=== PATIENT | male | born 1995 | race Caucasian/White ===

== ENCOUNTER 2016-12-23 21:51 | Emergency (ER) | payer OTHER ==
[2016-12-23 21:57] VITALS: BP 128/79
[2016-12-23] MEDS ORDERED: Azithromycin TAB* 250 MG PO ONE (22:02)
--- NOTE | 2016-12-23 22:10 | UC ---
Respiratory Complaint HPI - History of Current Complaint Chief Complaint: UCRespiratory Stated Complaint: COUGH Time Seen by Provider: 12/23/16 21:56 Hx Obtained From: Patient - started with cough and congestion 1 week ago. today started to cough up green phlegm and feels tired. took only Zyrtec for relief Onset/Duration: Gradual Onset Timing: Constant Severity Initially: Mild Severity Currently: Moderate Associated Signs And Symptoms: Positive: URI, Nasal Congestion - Allergies/Home Medications Allergies/Adverse Reactions: Allergies Allergy/AdvReac Type Severity Reaction Status Date / Time Penicillins Allergy Hives Verified 12/23/16 21:58 PMH/Surg Hx/FS Hx/Imm Hx Previously Healthy: Yes - Surgical History Surgical History: None - Family History Known Family History: Positive: None - Social History Occupation: Student Lives: With Family Alcohol Use: Occasionally Substance Use Type: None Smoking Status (MU): Never Smoked Tobacco Review of Systems Constitutional: Negative, Fatigue Skin: Negative Respiratory: Cough Cardiovascular: Negative Genitourinary: Negative Neurological: Negative All Other Systems Reviewed And Are Negative: Yes Physical Exam Triage Information Reviewed: Yes Appearance: Well-Appearing, No Pain Distress, Well-Nourished Vital Signs: Initial Vital Signs Temp 98.6 F 12/23/16 21:55 Pulse 81 12/23/16 21:55 Resp 12 12/23/16 21:55 BP 128/79 12/23/16 21:55 Pulse Ox 97 12/23/16 21:55 Vital Signs Reviewed: Yes Eyes: Positive: Conjunctiva Clear ENT: Positive: Nasal congestion, TMs normal, Other: - large amount clear PND Respiratory: Positive: Rhonchi, Other: - productive cough Cardiovascular Exam: Normal Neurological Exam: Normal Psychological Exam: Normal Skin Exam: Normal UC Diagnostic Evaluation - Laboratory O2 Sat by Pulse Oximetry: 97 Respiratory Course/Dx - Differential Dx/Diagnosis Differential Diagnosis/HQI/PQRI: Bronchitis, Lower Resp Infection, Sinusitis Provider Diagnoses: Bronchitis Discharge - Discharge Plan Condition: Stable Disposition: HOME Prescriptions: Azithromycin TAB* [Zithromax TAB (Z-DONNA) 250 mg #6 tabs] 250 mg PO DAILY #4 tab Patient Education Materials: Acute Bronchitis (ED) Additional Instructions: Take antibiotic as prescribed Use NyQuil before bed as directed You can also take DayQuil in the day for symptom relief follow-up at [facility] if no better 2-3 days
== END 2016-12-23 22:14 | disposition home or self-care (01) ==
LOC: UCEAST 21:51
DX: J40 Bronchitis, not specified as acute or chronic (principal); Z88.0 Allergy status to penicillin
CPT/HCPCS: 99202; A9270-GY; G0463